=== PATIENT | female | born 1940 | race Hispanic/Latino ===

== ENCOUNTER → 2019-07-28 | Day surgery (SDC) | payer MEDICARE ==
[2019-07-26 11:34] LABS: BASOPHILS % 0.4 % (0.0-1.0); EOSINOPHILS # (AUTO) 0.1 (0.0-0.4); EOSINOPHILS % 1.4 % (0.0-6.0); HEMATOCRIT 37.1 % (34.2-44.1); HEMOGLOBIN 11.5 g/dL (12.0-16.0); LYMPHOCYTES # (AUTO) 1.9 (1.0-3.2); MEAN CORPUSCULAR VOLUME 90.3 fL (81-99); MONOCYTES # (AUTO) 0.6 (0.2-0.8); MONOCYTES % 6.4 % (4.4-11.3); NEUTROPHILS # (AUTO) 6.5 (2.1-6.9); NEUTROPHILS % 70.4 % (38.7-80.0); PLATELET COUNT 243 x10e3/uL (140-360); RED BLOOD COUNT 4.11 x10e6/uL (3.6-5.1); RED CELL DISTRIBUTION WIDTH 12.6 % (11.7-14.4)
[2019-07-26 11:53] LABS: ANION GAP 12.3 mmol/L (8-16); CALCIUM 8.7 mg/dL (8.4-10.2); CREATININE, SERUM 1.23 mg/dL (0.57-1.11); POTASSIUM 5.3 mmol/L (3.5-5.1)
--- NOTE | 2019-07-26 12:14 | Diagnostic Imaging Report ---
Chest, PA and lateral. History: N95.0. R19.04 Comparison: 06/15/2019 Discussion: The cardiomediastinal silhouette and pulmonary vasculature are within normal limits. The lungs are clear without evidence of consolidation or effusion. There are no acute osseous abnormalities. IMPRESSION: No acute cardiopulmonary abnormality. Signed by: Blanco Sandhu MD on 07/26/2019 12:11 PM
[~2019-07-28] MED LIST: ACTOS15 MG PO; ATENOLOL50 MG PO; BACTRIM DS TAB1 EACH PO; CODEINE SULFATE30 MG PO; FENTANYL CITRATE/PF 100MCG/2 ML INJ ONE; FUROSEMIDE40 MG PO; GLIPIZIDE ER5 MG PO; GLYCOPYRROLATE INJ 0.2 MG/ML VIAL ONE; HYDROCHLOROTHIA25 MG PO; LEVOTHYROXINE50 MCG PO; LIDOCAINE HCL 2% LOCAL INJ 5 ML SDV VIAL INJ ONE; LISINOPRIL10 MG PO; LOSARTAN POTASS25 MG PO; LOVASTATIN20 MG PO; METFORMIN HCL500 MG PO; METOPROLOL TART50 MG PO; NOVOLIN N100 UNIT/1 SC; ONDANSETRON HCL INJ 2MG/ML 2ML 2 MG/ML VIAL ONE; PROPOFOL IV EMULSION 10 MG/ML 20 ML VIAL ONE; SEVOFLURANE INHAL SOLN 250 ML PEN BTL ONE; TRAMADOL-ACETAMI1 EA PO; VITAMIN D PO
[2019-07-28 14:25] VITALS: BP 119/77
--- NOTE | 2019-07-28 22:47 | Operative Report ---
DATE OF PROCEDURE: SURGEON: Bess Pratt MD PREOPERATIVE DIAGNOSIS: Abnormal uterine bleeding. POSTOPERATIVE DIAGNOSIS: Abnormal uterine bleeding. PROCEDURE: Hysteroscopy, D and C. COMPLICATIONS: None. ESTIMATED BLOOD LOSS: Minimal. DESCRIPTION OF PROCEDURE: The patient was taken to the OR where general anesthesia was induced. She was prepped and draped in a normal sterile fashion and placed in dorsal lithotomy position. After examination under anesthesia, uterus anteverted, mobile, about 12-week size. Weighted speculum was placed inside the vagina and cervix was grasped with single-tooth tenaculum. Uterine sound measured the uterine cavity to be about 14 cm. Cervix was dilated to Hegar 8. Hysteroscope was introduced and showed multiple uterine polyps, which were excised using the trochlear soft tissue mini and sent to pathology separately. Hysteroscope was removed. Sharp curettings were obtained and sent to pathology. The patient tolerated the procedure well. Laps, instrument, and needle counts were correct x2 at the end of the procedure. Bess Pratt MD DD/MIGUELL /[id number]
== END | disposition home or self-care (01) ==
LOC: OR 10:43
PROVIDERS: ATTEND Obstetrics & Gynecology
DX: N93.8 Other specified abnormal uterine and vaginal bleeding (principal); N84.0 Polyp of corpus uteri; N95.0 Postmenopausal bleeding; I10 Essential (primary) hypertension; E11.9 Type 2 diabetes mellitus without complications; Z79.4 Long term (current) use of insulin; Z79.84 Long term (current) use of oral hypoglycemic drugs; E03.9 Hypothyroidism, unspecified
CPT/HCPCS: 36415 ×2; 58558; 71046; 80048; 82948; 85025; 88305; J2001; J2405; J2704; J3010

== ENCOUNTER 2020-04-20 18:09 | Emergency (ER) | payer MEDICARE ==
[~2020-04-20] VITALS: Ht 154.9 cm; Wt 72.6 kg
[~2020-04-20 18:09] MED LIST changes: -FENTANYL CITRATE/PF 100MCG/2 ML INJ ONE; -GLYCOPYRROLATE INJ 0.2 MG/ML VIAL ONE; -LIDOCAINE HCL 2% LOCAL INJ 5 ML SDV VIAL INJ ONE; -ONDANSETRON HCL INJ 2MG/ML 2ML 2 MG/ML VIAL ONE; -PROPOFOL IV EMULSION 10 MG/ML 20 ML VIAL ONE; -SEVOFLURANE INHAL SOLN 250 ML PEN BTL ONE
[2020-04-20 19:14] LABS: BASOPHILS % 0.2 % (0.0-1.0); EOSINOPHILS # (AUTO) 0.2 (0.0-0.4); EOSINOPHILS % 1.7 % (0.0-6.0); HEMATOCRIT 38.6 % (34.2-44.1); LYMPHOCYTES # (AUTO) 1.4 (1.0-3.2); LYMPHOCYTES % 15.1 % (18.0-39.1); MEAN CORPUSCULAR HEMOGLOBIN 27.1 pg (28-32); MEAN CORPUSCULAR HGB CONC 31.1 g/dL (31-35); MEAN CORPUSCULAR VOLUME 87.3 fL (81-99); MONOCYTES # (AUTO) 0.5 (0.2-0.8); MONOCYTES % 5.2 % (4.4-11.3); NEUTROPHILS # (AUTO) 7.2 (2.1-6.9); NEUTROPHILS % 77.4 % (38.7-80.0); PLATELET COUNT 254 x10e3/uL (140-360); RED BLOOD COUNT 4.42 x10e6/uL (3.6-5.1)
[2020-04-20 19:26] LABS: ALBUMIN 3.6 g/dL (3.5-5.0); ALBUMIN/GLOBULIN RATIO 0.8 (0.8-2.0); CALCIUM 9.4 mg/dL (8.4-10.2); CREATININE, SERUM 1.39 mg/dL (0.57-1.11)
[2020-04-20 19:32] LABS: CREATINE KINASE MB 1.2 ng/mL (0-5.0)
[2020-04-20] MEDS ORDERED: SODIUM CHLORIDE 0.9% 250ML 250 ML IV ONE (20:15)
[2020-04-20] MEDS ORDERED: IOPAMIDOL 370 MG/ML 200 ML INFUS..BTL INJ ONE (20:54)
[2020-04-20] MEDS ORDERED: SODIUM CHLORIDE 0.9% 50ML 50 ML ONE ×2 (20:54→21:29)
[2020-04-20 23:08] VITALS: BP 146/59
== END 2020-04-20 22:55 | disposition home or self-care (01) ==
LOC: ER 18:41
DX: N95.0 Postmenopausal bleeding (principal); R19.09 Other intra-abdominal and pelvic swelling, mass and lump; I10 Essential (primary) hypertension; E11.65 Type 2 diabetes mellitus with hyperglycemia; E78.00 Pure hypercholesterolemia, unspecified
CPT/HCPCS: 36415; 74177; 80053; 82550; 82553; 84484; 85025; 99284; J7050; Q9967